=== PATIENT | male | born 1975 | race Caucasian/White ===

== ENCOUNTER 2017-04-30 10:49 | Inpatient (IN) | payer OTHER ==
[~2017-04-30] VITALS: Ht 175.3 cm; Wt 89.8 kg
[~2017-04-30 10:49] MED LIST: IBUP-1542 PO; XANAX
[2017-04-30 14:56] VITALS: Ht 175.3 cm; Wt 89.8 kg
[2017-04-30] MEDS ORDERED: ONDANSETRON 4 MG INJ IV PRN (15:00)
[2017-04-30] MEDS ORDERED: NACL 0.9% 3 ML SYG IV SCH (15:00)
[2017-04-30] MEDS ORDERED: ACETAMINOPHEN 325 MG TAB PO PRN (15:00)
[2017-04-30] MEDS ORDERED: LORAZEPAM 2 MG INJ IV PRN (15:00)
[2017-04-30 15:17] VITALS: BP 129/71; RESP 18
[2017-04-30 16:01] VITALS: PULSE 77
[2017-04-30 16:03] VITALS: BP 114/66; RESP 18
--- NOTE | 2017-04-30 16:28 | HP ---
Date/Time of Note Date/Time of Note DATE: 04/30/17 TIME: 16:18 Assessment/Plan VTE Prophylaxis VTE Prophylaxis Intervention: LMWH Lines/Catheters IV [facility]ter [facility]from [facility] Urinary Cath still in place: No Assessment/Plan Chief Complaint/Hosp Course 1. Atypical chest pain. The chest pain could be most probably noncardiac in origin. Will rule out any ACS with serial troponins. Will obtain a 2D echocardiogram since the patient has history of cocaine abuse. 2. Alcohol intoxication. The patient will be started on daily banana bag. The patient will be started on tapering dose of Librium. The patient will also be started on as needed IV benzodiazepines for any acute alcohol withdrawal delirium. 3. Substance abuse. Cessation will be advised. 4. Sciatica. The patient will be provided with with adequate pain control. Plan: The patient will be admitted to inpatient telemetry floor. The patient will be started on a regular diet. The patient will be started on DVT prophylaxis and gastrointestinal prophylaxis. The patient will remain a full code. Activities will be as tolerated. The rest of the patient's management will be based on the clinical course and the results of diagnostic studies. Based on the patient's clinical presentation, he most probably requires at least one midnight's stay for further management and evaluation of his clinical presentation. The case and management of this patient was fully discussed with Dr. Contreras. Problems: HPI/ROS Admit Date/Time Admit Date/Time Apr 30, 2017 at 14:08 Hx of Present Illness Reason for admission: Transfer from [facility] for further care. This is a 41-year-old -N[place]alese male with past medical history of polysubstance abuse and sciatica who went to [facility] because of chest pain. The patient verbalized that he has been drinking alcohol approximately 3 pints of hard liquor a day on a daily basis for the past few days. The patient's last drink was the morning of April 30, 2017. The patient verbalized that he has been abusing alcohol for the past 15 years. The patient is also a cocaine user. He last used cocaine on 04/29/2017. The patient verbalizes chest pain as sharp and intermittent. There was no associated radiation of the pain, nausea, vomiting, or diaphoresis. The patient apparently went to another emergency room 1 day ago because of similar complaints and he was told that his heart rate was high. At the emergency room in [facility], the patient's 12-lead EKG showed sinus rhythm with a heart rate of 99 bpm. The patient's drug screen was positive for cocaine and the patient had an ethanol level of 0.21. The patient was not actively withdrawing. The patient was transferred to [facility] for further management because of insurance reasons. ROS Constitutional: no complaints Eyes: no complaints ENT: no complaints Respiratory: no complaints Cardiovascular: chest pain Gastrointestinal: no complaints Genitourinary: no complaints Musculoskeletal: no complaints Skin: no complaints Neurologic: no complaints Endocrine: no complaints Lymphatic: no complaints Psychological: no complaints Immunologic: no complaints PMH/Family/Social Past Medical History Medical History: other (Sciatica, polysubstance abuse) Past Surgical History Past Surgical Hx: no surgical history Family History Significant Family History: hypertension Social History The patient works as a musician. Alcohol Use: heavy Smoking Status: Current some day smoker Drug Use: cocaine Exam/Review of Systems Vital Signs Vitals Vital Signs Date Time Temp Pulse Resp B/P Pulse Ox O2 Delivery O2 Flow Rate FiO2 04/30/17 16:03 98.3 91 18 114/66 99 04/30/17 15:17 Room Air Exam Exam General: Adequately build 41 year-old male lying in bed in no apparent distress. HEENT: Normocephalic, atraumatic. Eyes: Anicteric sclerae, conjunctivae clear. ENT: Nasal septum midline, oral mucosa moist. Neck supple, no JVD noticed. Respiratory: Bilaterally clear breath sounds. No use of accessory muscles of respiration. No adventitious breath sounds. Cardiovascular: S1, S2 heard. No murmurs or gallops. Abdomen: Soft, nontender, and nondistended. Bowel sounds positive in all 4 quadrants. Genitourinary: Deferred. Extremities: No cyanosis, no clubbing, no edema. Peripheral pulses palpable. Neurologic: Cranial nerves II through XII grossly intact. The patient is awake, alert, and oriented. Skin: Normal skin turgor. No skin rashes. Medications Medications Current Medications Ondansetron HCl (Zofran Inj) 4 mg Q6H PRN IV NAUSEA AND/OR VOMITING; Start 09/04 at 15:00 Acetaminophen (Tylenol Tab) 650 mg Q6H PRN PO PAIN LEVEL 1-3 OR FEVER; Start at 15:00 Acetaminophen/ Hydrocodone Bitart ([place] (5/325)) 1 tab Q6H PRN PO PAIN LEVEL 4 -6; Start 04/30/17 at 15:00 Famotidine (Pepcid) 20 mg Q12 PO ; Start 04/30/17 at 21:00 Lorazepam 1 mg 1 mg Q2H PRN IV Anxiety; Start 04/30/17 at 15:00 Multivitamins/ Thiamine HCl/ Folic Acid/Sodium Chloride (Mvi Adult/ Vitamin B1/ Folic Acid/NS) 1,011.2 ml @ 125 mls/ hr DAILY@09 IVPB ; Start 04/30/17 at 16:00 Procedures Procedures Twelve-Lead EKG Sinus rhythm with a ventricular rate of 99 bpm. Labs from referring facility on 04/30/2017 WBC 7.6, hemoglobin 14.5, hematocrit 41.1, platelet count 260 Sodium 141, potassium 3.9, chloride 98, 27, anion gap 16, glucose 95, BUN 7, creatinine 1.4, GFR 76, calcium 9.2, magnesium 2.3, total protein 7.3, albumin 4.1, alkaline phosphatase 77, ALT 13, AST 25 Alcohol level 0.21 Urine drug toxicology. Positive for cocaine. HONG WILSON NP Apr 30, 2017 16:27
[2017-04-30] MEDS ORDERED: hydrALAzine 20 MG INJ IV PRN (16:30)
[2017-04-30 16:55] LABS: BASOPHILS % 0.5 % (0.0-2.0); EOSINOPHILS # 0.2 10^3/ul (0.0-0.5); EOSINOPHILS % 2.6 % (0.0-7.0); HEMATOCRIT 36.8 % (42.0-52.0); HEMOGLOBIN 12.2 g/dl (14.0-18.0); LYMPHOCYTES # 1.4 10^3/ul (0.8-2.9); LYMPHOCYTES % 21.4 % (15.0-51.0); MEAN CORPUSCULAR HGB CONC 33.2 g/dl (32.0-37.0); MEAN CORPUSCULAR VOLUME 90.6 fl (82.0-101.0); MEAN PLATELET VOLUME 8.9 fl (7.4-10.4); MONOCYTE # 0.8 10^3/ul (0.3-0.9); MONOCYTES % 12.9 % (0.0-11.0); NEUTROPHIL # 4.1 10^3/ul (1.6-7.5); NEUTROPHILS % 62.4 % (39.0-77.0); PLATELET COUNT 228 10^3/UL (140-415); RED BLOOD COUNT 4.06 10^6/ul (4.70-6.10); WHITE BLOOD COUNT 6.5 10^3/ul (4.8-10.8)
[2017-04-30] MEDS: HYDROCODONE/APAP (5/325) TAB PO PRN (17:03)
[2017-04-30 17:20] LABS: ALANINE AMINOTRANSFERASE 19 IU/L (13-69); ALBUMIN 3.7 g/dl (3.3-4.9); ALBUMIN/GLOBULIN RATIO 1.19; ALKALINE PHOSPHATASE 78 IU/L (42-121); ANION GAP 18 (8-16); ASPARTATE AMINO TRANSFERASE 25 IU/L (15-46); BILIRUBIN,INDIRECT 0.3 mg/dl (0-1.1); BILIRUBIN,TOTAL 0.3 mg/dl (0.2-1.3); BLOOD UREA NITROGEN 13 mg/dl (7-20); CALCIUM 8.8 mg/dl (8.4-10.2); CARBON DIOXIDE 29 mmol/L (21-31); CHLORIDE 99 mmol/L (97-110); CREATINE KINASE 212 IU/L (23-200); CREATININE 1.17 mg/dl (0.61-1.24); GLUCOSE 77 mg/dl (70-220); MAGNESIUM 2.3 mg/dl (1.7-2.5); PHOSPHORUS 3.8 mg/dl (2.5-4.9); POTASSIUM 4.5 mmol/L (3.5-5.1); SODIUM 141 mmol/L (135-144); TOTAL PROTEIN 6.8 g/dl (6.1-8.1)
[2017-04-30 17:30] LABS: B-TYPE NATRIURETIC PEPTIDE 20 PG/ML (0-125)
[2017-04-30] MEDS: MULTIVITAMINS 10 ML, THIAMINE 100 MG, FOLIC ACID 1 MG in SOD CHLORIDE 0.9% 1,000 ML IVPB SCH (17:39)
[2017-04-30 17:41] LABS: CK-MB 0.94 ng/ml (0.0-2.4); TROPONIN-I < 0.012 ng/ml (0.00-0.12)
[2017-04-30 20:08] VITALS: PULSE 84
[2017-04-30] MEDS: CHLORDIAZEPOXIDE 25 MG CAP PO SCH (20:22)
[2017-04-30] MEDS: FAMOTIDINE 20 MG TAB PO SCH (20:22)
[2017-04-30] MEDS: HEPARIN 5,000 UNIT/0.5 ML VIAL SC SCH (20:23)
[2017-04-30 20:34] VITALS: BP 126/58; RESP 19
[2017-05-01] VITALS (11 sets, daily range): BP systolic 130–158; BP diastolic 71–85; PULSE 64–75; RESP 17–20
[2017-05-01 07:05] LABS: BASOPHILS % 0.4 % (0.0-2.0); EOSINOPHILS # 0.1 10^3/ul (0.0-0.5); EOSINOPHILS % 2.4 % (0.0-7.0); HEMATOCRIT 37.9 % (42.0-52.0); HEMOGLOBIN 12.4 g/dl (14.0-18.0); LYMPHOCYTES # 1.4 10^3/ul (0.8-2.9); LYMPHOCYTES % 29.9 % (15.0-51.0); MEAN CORPUSCULAR HEMOGLOBIN 29.5 pg (29.0-33.0); MEAN CORPUSCULAR HGB CONC 32.7 g/dl (32.0-37.0); MEAN CORPUSCULAR VOLUME 90.2 fl (82.0-101.0); MEAN PLATELET VOLUME 9.3 fl (7.4-10.4); MONOCYTE # 0.6 10^3/ul (0.3-0.9); MONOCYTES % 12.6 % (0.0-11.0); NEUTROPHIL # 2.5 10^3/ul (1.6-7.5); NEUTROPHILS % 54.3 % (39.0-77.0); PLATELET COUNT 222 10^3/UL (140-415); RED CELL DISTRIBUTION WIDTH 13.9 % (11.5-14.5); WHITE BLOOD COUNT 4.6 10^3/ul (4.8-10.8)
[2017-05-01 07:24] LABS: ALBUMIN 3.4 g/dl (3.3-4.9); ALBUMIN/GLOBULIN RATIO 1.25; BILIRUBIN,INDIRECT 0.7 mg/dl (0-1.1); BILIRUBIN,TOTAL 0.7 mg/dl (0.2-1.3); CALCIUM 9.1 mg/dl (8.4-10.2); CREATININE 1.17 mg/dl (0.61-1.24); TOTAL PROTEIN 6.1 g/dl (6.1-8.1)
[2017-05-01 07:42] LABS: CHOL/HDL RATIO 3.8 RATIO; CHOLESTEROL 206 mg/dl (100-200); HDL CHOLESTEROL 53 mg/dl (27-67); MAGNESIUM 2.1 mg/dl (1.7-2.5); PHOSPHORUS 3.5 mg/dl (2.5-4.9); TRIGLYCERIDES 71 mg/dl (0-149)
[2017-05-01 07:55] LABS: TROPONIN-I < 0.012 ng/ml (0.00-0.12)
[2017-05-01] MEDS: CHLORDIAZEPOXIDE 25 MG CAP PO SCH ×3 (08:22→20:36)
[2017-05-01] MEDS: FAMOTIDINE 20 MG TAB PO SCH ×2 (08:22→20:36)
[2017-05-01] MEDS: HEPARIN 5,000 UNIT/0.5 ML VIAL SC SCH ×2 (08:24→20:36)
[2017-05-01] MEDS: MULTIVITAMINS 10 ML, THIAMINE 100 MG, FOLIC ACID 1 MG in SOD CHLORIDE 0.9% 1,000 ML IVPB SCH (08:25)
[2017-05-01] MEDS: HYDROCODONE/APAP (5/325) TAB PO PRN ×2 (08:29→17:13)
--- NOTE | 2017-05-01 15:04 | PN ---
Date/Time of Note Date/Time of Note DATE: 05/01/17 TIME: 15:01 Assessment/Plan VTE Prophylaxis VTE Prophylaxis Intervention: SCD's Lines/Catheters IV Catheter Type (from Nrsg): Peripheral IV Urinary Cath still in place: No Assessment/Plan Assessment/Plan 1. Atypical chest pain. non cardiac, 2 D ECho 2. Alcohol intoxication. banana bag,IV ativan, Librium 3. Substance abuse. Cessation will be advised. 4. Sciatica. The patient will be brought with adequate pain control. SCD for DVT prophylaxis Subjective 24 Hr Interval Summary Free Text/Dictation stable, no acute events, Vital stable, on Banana bag Exam/Review of Systems Vital Signs Vitals Vital Signs Date Time Temp Pulse Resp B/P Pulse Ox O2 Delivery O2 Flow Rate FiO2 05/01/17 12:08 75 05/01/17 11:47 98.0 18 134/74 98 04/30/17 15:17 Room Air Exam Constitutional: alert Psych: no complaints Head: normocephalic Neck: non-tender, supple Respiratory: clear to auscultation, normal air movement Cardiovascular: bruits, nl pulses, regular rate and rhythm Gastrointestinal: non-tender, soft Musculoskeletal: nl extremities to inspection, nl gait and stance Extremities: normal pulses Results Result Diagram: 05/01/17 0636 05/01/17 0636 Results 24 hrs Laboratory Tests Test 04/30/17 16:47 04/30/17 16:48 05/01/17 06:36 Sodium Level 141 141 Potassium Level 4.5 4.0 Chloride Level 99 99 Carbon Dioxide Level 29 30 Anion Gap 18 H 16 Blood Urea Nitrogen 13 14 Creatinine 1.17 1.17 Glucose Level 77 76 Hemoglobin A1c 5.8 Calcium Level 8.8 9.1 Phosphorus Level 3.8 3.5 Magnesium Level 2.3 2.1 Total Bilirubin 0.3 0.7 Direct Bilirubin 0.00 0.00 Indirect Bilirubin 0.3 0.7 Aspartate Amino Transf (AST/SGOT) 25 22 Alanine Aminotransferase (ALT/SGPT) 19 29 Alkaline Phosphatase 78 73 Creatine Kinase 212 H Creatine Kinase Index 0.4 Creatinine Kinase MB (Mass) 0.94 Troponin I < 0.012 < 0.012 B-Type Natriuretic Peptide 20 Total Protein 6.8 6.1 Albumin 3.7 3.4 Globulin 3.10 2.70 Albumin/Globulin Ratio 1.19 1.25 Thyroid Stimulating Hormone (TSH) 0.910 Free Thyroxine 0.87 White Blood Count 6.5 4.6 #L Red Blood Count 4.06 L 4.20 L Hemoglobin 12.2 L 12.4 L Hematocrit 36.8 L 37.9 L Mean Corpuscular Volume 90.6 90.2 Mean Corpuscular Hemoglobin 30.0 29.5 Mean Corpuscular Hemoglobin Concent 33.2 32.7 Red Cell Distribution Width 14.0 13.9 Platelet Count 228 222 Mean Platelet Volume 8.9 9.3 Neutrophils % 62.4 54.3 Lymphocytes % 21.4 29.9 Monocytes % 12.9 H 12.6 H Eosinophils % 2.6 2.4 Basophils % 0.5 0.4 Nucleated Red Blood Cells % 0.0 0.0 Neutrophils # 4.1 2.5 Lymphocytes # 1.4 1.4 Monocytes # 0.8 0.6 Eosinophils # 0.2 0.1 Basophils # 0.0 0.0 Nucleated Red Blood Cells # 0.0 0.0 Triglycerides Level 71 Cholesterol Level 206 H LDL Cholesterol, Calculated 139 HDL Cholesterol 53 Cholesterol/HDL Ratio 3.8 Medications Medications Current Medications Ondansetron HCl (Zofran Inj) 4 mg Q6H PRN IV NAUSEA AND/OR VOMITING; Start 09/04 at 15:00 Acetaminophen (Tylenol Tab) 650 mg Q6H PRN PO PAIN LEVEL 1-3 OR FEVER; Start at 15:00 Acetaminophen/ Hydrocodone Bitart ([place] (5/325)) 1 tab Q6H PRN PO PAIN LEVEL 4 -6 Last administered on 05/01/17 08:29; Admin Dose 1 TAB; Start 04/30/17 at 15: 00 Famotidine (Pepcid) 20 mg Q12 PO Last administered on 05/01/17 08:22; Admin Dose 20 MG; Start 04/30/17 at 21:00 Lorazepam 1 mg 1 mg Q2H PRN IV Anxiety; Start 04/30/17 at 15:00 Multivitamins/ Thiamine HCl/ Folic Acid/Sodium Chloride (Mvi Adult/ Vitamin B1/ Folic Acid/NS) 1,011.2 ml @ 125 mls/ hr DAILY@09 IVPB Last administered on 08:25; Admin Dose 125 MLS/HR; Start 04/30/17 at 16:00 Hydralazine HCl (Apresoline) 10 mg Q6H PRN IV SBP>160; Start 04/30/17 at 16:30 Heparin Sodium (Porcine) (Heparin (5000 Units/0.5 ml)) 5,000 unit BID SC Last administered on 05/01/17 08:24; Admin Dose 5,000 UNIT; Start 04/30/17 at 21:00 Chlordiazepoxide (Librium) 50 mg TID PO Last administered on 05/01/17 13:12; Admin Dose 50 MG; Start 04/30/17 at 21:00 BRANDY WAKEFIELD MD May 01, 2017 15:03
--- NOTE | 2017-05-01 15:25 | RADRPT ---
Echocardiogram Report Patient Name: PAYAL SHELTON Gender: Male Date: 1975 Study Date: 01-May-2017 Bisque Cleaner: Payal Vigil [facility] Location: [id number] Ref. Physician: HONG WILSON Quality: Adequate Procedures: Transthoracic echocardiogram with complete 2D, M-Mode, and doppler examination. Indications: Chest Pain. 2D/M Mode Doppler Measurement Value Normal Ranges Measurement Value Normal Ranges LVIDd 2D 4.8 3.5 - 5.6 cm AV Peak Foster 1.5 m/sec LVIDs 2D 3.1 2.1 - 4.1 cm AV Peak PG 9.0 mmHg FS 2D 34.5 % LVOT Peak Foster 1.1 m/sec LVPWd 2D 1.3 0.6 - 1.1 cm LVOT Peak PG 5.0 mmHg IVSd 2D 1.3 0.6 - 1.1 cm MV E Peak Foster 0.8 m/sec IVS/LVPW 2D 1.0 MV A Peak Foster 0.6 m/sec AoR Diam 2D 3.0 2.0 - 3.7 cm MV E/A 1.2 LA/Ao 2D 1 0 - 1 MV Decel Time 208 msec EDV 2D 109.0 cm3 MV E/A 1.2 ESV 2D 30.7 cm3 TR Peak Foster 2.5 m/sec LA Dimen 2D 3.7 2.3 - 4.0 cm TR Peak PG 25.0 mmHg RVSP 28.0 mmHg Findings Left Ventricle: Normal left ventricular systolic function. Normal left ventricular cavity size. Mild concentric left ventricular hypertrophy. Ejection fraction is visually estimated at 65 %. Abnormal Diastolic Function. Right Ventricle: Normal right ventricular size. Normal right ventricular systolic function. Left Atrium: The left atrium is normal in size. Right Atrium: The right atrium is normal in size. Mitral Valve: Mild mitral leaflet calcification. Mild mitral annular calcification. Trace mitral regurgitation. Aortic Valve: Normal appearance of the aortic valve. No significant aortic stenosis or insufficiency. Tricuspid Valve: Normal appearance of the tricuspid valve. Estimated peak PA systolic pressure 28 mmHg. There is trace tricuspid regurgitation. Pulmonic Valve: Pulmonic valve not well visualized. There is trace pulmonic regurgitation. Pericardium: Normal pericardium with no significant pericardial effusion. Aorta: Normal aortic root. IVC: Normal size and normal respiratory collapse consistent with normal right atrial pressure. Conclusions 1.Normal left ventricular systolic function. Normal left ventricular cavity size. Mild concentric left ventricular hypertrophy. Ejection fraction is visually estimated at 65 %. Abnormal Diastolic Function. 2.Normal right ventricular size. Normal right ventricular systolic function. 3.Mild mitral leaflet calcification. Mild mitral annular calcification. Trace mitral regurgitation. 4.Normal appearance of the aortic valve. No significant aortic stenosis or insufficiency. 5.Normal appearance of the tricuspid valve. Estimated peak PA systolic pressure 28 mmHg. There is trace tricuspid regurgitation. 6.Normal pericardium with no significant pericardial effusion. Electronically Signed By: Ananth Luna 01-May-2017 15:24:52 -0700 Patient Name: PAYAL SHELTON Study Date: 01-May-2017 [id number]
[2017-05-02] VITALS: BP 132/79; RESP 20
[2017-05-02 00:03] VITALS: PULSE 79
[2017-05-02 04:02] VITALS: PULSE 78
[2017-05-02 04:13] VITALS: BP 129/67; RESP 19
[2017-05-02 07:12] LABS: BASOPHILS % 0.4 % (0.0-2.0); EOSINOPHILS # 0.1 10^3/ul (0.0-0.5); EOSINOPHILS % 1.3 % (0.0-7.0); HEMATOCRIT 38.8 % (42.0-52.0); HEMOGLOBIN 12.8 g/dl (14.0-18.0); LYMPHOCYTES % 17.4 % (15.0-51.0); MEAN CORPUSCULAR HEMOGLOBIN 29.5 pg (29.0-33.0); MEAN CORPUSCULAR VOLUME 89.4 fl (82.0-101.0); MEAN PLATELET VOLUME 9.2 fl (7.4-10.4); MONOCYTE # 0.8 10^3/ul (0.3-0.9); MONOCYTES % 14.2 % (0.0-11.0); NEUTROPHIL # 3.7 10^3/ul (1.6-7.5); NEUTROPHILS % 66.3 % (39.0-77.0); PLATELET COUNT 234 10^3/UL (140-415); RED BLOOD COUNT 4.34 10^6/ul (4.70-6.10); RED CELL DISTRIBUTION WIDTH 13.3 % (11.5-14.5); WHITE BLOOD COUNT 5.6 10^3/ul (4.8-10.8)
[2017-05-02 07:40] LABS: ALBUMIN 3.8 g/dl (3.3-4.9); ALBUMIN/GLOBULIN RATIO 1.26; BILIRUBIN,INDIRECT 0.3 mg/dl (0-1.1); BILIRUBIN,TOTAL 0.3 mg/dl (0.2-1.3); CALCIUM 9.2 mg/dl (8.4-10.2); CREATININE 1.19 mg/dl (0.61-1.24); POTASSIUM 3.5 mmol/L (3.5-5.1); TOTAL PROTEIN 6.8 g/dl (6.1-8.1)
[2017-05-02 07:43] LABS: INR 0.91; PROTIME 12.2 Sec (12.2-14.2)
[2017-05-02 07:44] VITALS: BP 130/82; RESP 17
[2017-05-02 07:50] LABS: PARTIAL THROMBOPLASTIN TIME 26.6 Sec (25.0-35.0)
[2017-05-02 08:02] VITALS: PULSE 86
[2017-05-02] MEDS: FAMOTIDINE 20 MG TAB PO SCH (08:09)
[2017-05-02] MEDS: HYDROCODONE/APAP (5/325) TAB PO PRN (08:09)
[2017-05-02] MEDS: CHLORDIAZEPOXIDE 25 MG CAP PO SCH (08:09)
[2017-05-02] MEDS: HEPARIN 5,000 UNIT/0.5 ML VIAL SC SCH (08:10)
[2017-05-02] MEDS: MULTIVITAMINS 10 ML, THIAMINE 100 MG, FOLIC ACID 1 MG in SOD CHLORIDE 0.9% 1,000 ML IVPB SCH (08:12)
--- NOTE | 2017-05-02 11:46 | DS ---
Date/Time of Note Date/Time of Note DATE: 05/02/17 TIME: 11:44 Discharge Summary Admission/Discharge Info Admit Date/Time Apr 30, 2017 at 14:08 Discharge Date/Time May 02, 2017 at 11:20 Hx of Present Illness Reason for admission: Transfer from [facility] for further care. This is a 41-year-old -Ivorian male with past medical history of polysubstance abuse and sciatica who went to [facility] because of chest pain. The patient verbalized that he has been drinking alcohol approximately 3 pints of hard liquor a day on a daily basis for the past few days. The patient's last drink was the morning of April 30, 2017. The patient verbalized that he has been abusing alcohol for the past 15 years. The patient is also a cocaine user. He last used cocaine on 04/29/2017. The patient verbalizes chest pain as sharp and intermittent. There was no associated radiation of the pain, nausea, vomiting, or diaphoresis. The patient apparently went to another emergency room 1 day ago because of similar complaints and he was told that his heart rate was a high at the emergency room in [facility], the patient's 12-lead EKG showed sinus rhythm with a heart rate of 99 bpm. The patient's drug screen was positive for cocaine and the patient had an ethanol level of 0.21. The patient was not actively withdrawing. The patient was transferred to [facility] for further management because of insurance reasons. Hospital Course Patient left before I was able to evaluate the patient. Patient wanted to leave against medical advice. Patient alert and oriented x 4. Dangers of leaving against medical advice including debility and explained. Patient accepted risks, patient left Against Medical Advice. Home Meds Active Scripts Ibuprofen* (Motrin*) 600 Mg Tab, 600 MG PO Q6H Y for PAIN AND OR ELEVATED TEMP, #30 TAB Prov:YOLANDA BECKER 09/09/16 Reported Medications Xanax 11/18/10 Primary Care Provider Not On Staff Doctor Pending Labs Laboratory Tests Test 05/02/17 06:37 White Blood Count 5.610^3/ul (4.8-10.8) Red Blood Count 4.3410^6/ul (4.70-6.10) Hemoglobin 12.8g/dl (14.0-18.0) Hematocrit 38.8% (42.0-52.0) Mean Corpuscular Volume 89.4fl (82.0-101.0) Mean Corpuscular Hemoglobin 29.5pg (29.0-33.0) Mean Corpuscular Hemoglobin Concent 33.0g/dl (32.0-37.0) Red Cell Distribution Width 13.3% (11.5-14.5) Platelet Count 56552^3/UL (140-415) Mean Platelet Volume 9.2fl (7.4-10.4) Neutrophils % 66.3% (39.0-77.0) Lymphocytes % 17.4% (15.0-51.0) Monocytes % 14.2% (0.0-11.0) Eosinophils % 1.3% (0.0-7.0) Basophils % 0.4% (0.0-2.0) Nucleated Red Blood Cells % 0.0/100WBC (0.0-0.0) Neutrophils # 3.710^3/ul (1.6-7.5) Lymphocytes # 1.010^3/ul (0.8-2.9) Monocytes # 0.810^3/ul (0.3-0.9) Eosinophils # 0.110^3/ul (0.0-0.5) Basophils # 0.010^3/ul (0.0-0.1) Nucleated Red Blood Cells # 0.010^3/ul (0.0-0.0) Prothrombin Time 12.2Sec (12.2-14.2) Prothrombin Time Ratio 1.0 INR International Normalized Ratio 0.91 Activated Partial Thromboplast Time 26.6Sec (25.0-35.0) Sodium Level 137mmol/L (135-144) Potassium Level 3.5mmol/L (3.5-5.1) Chloride Level 100mmol/L (97-110) Carbon Dioxide Level 29mmol/L (21-31) Anion Gap 12 (8-16) Blood Urea Nitrogen 14mg/dl (7-20) Creatinine 1.19mg/dl (0.61-1.24) Glucose Level 104mg/dl (70-220) Calcium Level 9.2mg/dl (8.4-10.2) Total Bilirubin 0.3mg/dl (0.2-1.3) Direct Bilirubin 0.00mg/dl (0.00-0.20) Indirect Bilirubin 0.3mg/dl (0-1.1) Aspartate Amino Transf (AST/SGOT) 25IU/L (15-46) Alanine Aminotransferase (ALT/SGPT) 25IU/L (13-69) Alkaline Phosphatase 78IU/L (42-121) Total Protein 6.8g/dl (6.1-8.1) Albumin 3.8g/dl (3.3-4.9) Globulin 3.00g/dl (1.3-3.2) Albumin/Globulin Ratio 1.26 KIERSTEN PAYNE May 02, 2017 11:45
--- NOTE | 2017-05-02 19:34 | RADRPT ---
Vent Rate: 71 bpm RR Interval: 0 msec PA Interval: 180 msec QRS Duration: 90 msec QT Interval: 382 msec QTC Interval: 415 msec P-R-T Anderson: 69 - 64 - 39 degrees Normal sinus rhythm Normal ECG Electronically Signed By: Jose Manuel Call [id number]
== END 2017-05-02 11:20 | disposition left against medical advice (07) | DRG 313 ==
LOC: INTOOBSV 14:08 → MS4 14:08 → OBSVTOIN 05-01 18:27 → UNDODISOB 05-02 11:20
PROVIDERS: ADMIT Internal Medicine; ATTEND Internal Medicine
DX: R07.89 Other chest pain (principal); F14.10 Cocaine abuse, uncomplicated; F10.129 Alcohol abuse with intoxication, unspecified; M54.30 Sciatica, unspecified side; F19.10 Other psychoactive substance abuse, uncomplicated
CPT/HCPCS: 80053; 80061; 82550; 82553; 83036; 83735; 83880; 84100; 84439; 84443; 84484; 85025; 85610; 85730; 93005; 93306; 99217; G0378; J1644; J2060; J3411; J7030